=== PATIENT | male | born 1960 | race African-American/Black ===

== ENCOUNTER 2022-10-12 08:55 | Emergency (ER) | payer OTHER ==
[~2022-10-12] VITALS: Ht 170.2 cm; Wt 79.5 kg
[2022-10-12 10:48] LABS: Albumin 3.8 g/dL (3.4-5.0); Potassium 4.7 mmol/L (3.5-5.1)
[2022-10-12 10:53] LABS: BUN/Creatinine Ratio 15.9; Bilirubin, Total 0.5 mg/dL (0.2-1.0); Total Protein 7.9 g/dL (6.4-8.2)
[2022-10-12 11:48] LABS: Basophils # (auto) 0 10 ^3/uL (0-0.2); Eosinophils # (auto) 0 10 ^3/uL (0-0.8); Eosinophils % (auto) 0.4 % (0.0-7.0); Lymphocytes # (auto) 1.3 10 ^3/uL (0.4-5.4); Mean Corpuscular Volume 81.6 fL (80.0-100.0); Neutrophils # (auto) 2.8 10 ^3/uL (1.6-8.6)
[2022-10-12 11:51] LABS: Basophils % (auto) 0.6 % (0.0-2.0); Hematocrit 40.6 % (41.0-53.0); Hemoglobin 12.8 g/dL (13.5-17.5); Lymphocytes % (auto) 26.9 % (10.0-50.0); Mean Corpuscular Hemoglobin 25.7 pg (28.0-32.0); Mean Corpuscular Hgb Conc. 31.4 g/dL (32.0-36.0); Monocytes # (auto) 0.6 10 ^3/uL (0-1.3); Monocytes % (auto) 12.5 % (0.0-12.0); Neutrophils % (auto) 59.6 % (37.0-80.0); Nucleated Red Blood Cells % 0.1 %; Red Blood Cells 4.98 10^6/uL (4.5-5.90); Red Cell Distribution Width 12.8 % (11.8-14.3); White Blood Cell 4.7 10^3/uL (4.4-10.8)
[2022-10-12] MEDS ORDERED: MECLIZINE HCL 25 MG TAB PO ONE (12:00)
[2022-10-12] MEDS ORDERED: SODIUM CHLORIDE 0.9% 1,000 ML IV ONE (12:00)
[2022-10-12 13:06] LABS: Urine Bacteria NONE SEEN /hpf (None Seen); Urine Blood Negative /uL (Negative); Urine Specific Gravity 1.022 (1.001-1.035); Urine WBC <1 /hpf (0 - 3)
[2022-10-12] MEDS ORDERED: AMOX500T86 PO (15:36)
[2022-10-12] MEDS ORDERED: OXYM0.0579 (15:36)
[2022-10-12] MEDS ORDERED: DEXT1SYP9 PO (15:36)
[2022-10-12 16:27] VITALS: BP 142/76
== END 2022-10-12 16:29 | disposition home or self-care (01) ==
LOC: ER 08:55 → EDBD 08:55 → ER 16:29
DX: J01.90 Acute sinusitis, unspecified (principal); R55 Syncope and collapse; H81.10 Benign paroxysmal vertigo, unspecified ear; I10 Essential (primary) hypertension; E78.5 Hyperlipidemia, unspecified; Z85.46 Personal history of malignant neoplasm of prostate; Z20.822 Contact with and (suspected) exposure to COVID-19
CPT/HCPCS: 36415; 70450; 71046; 80053; 81001; 83735; 87426; 99284; J8597

== ENCOUNTER 2023-03-20 06:57 | Emergency (ER) | payer OTHER, MEDICAID ==
[~2023-03-20] VITALS: Ht 175.3 cm; Wt 77.2 kg
[~2023-03-20 06:57] MED LIST: AMOX500T86 PO; DEXT1SYP9 PO; OXYM0.0579
[2023-03-20 07:05] VITALS: BP 0/0
== END 2023-03-20 07:22 ==
LOC: ER 06:57 → EDBD 07:01 → ER 07:22
DX: I46.9 Cardiac arrest, cause unspecified (principal); E78.5 Hyperlipidemia, unspecified; I10 Essential (primary) hypertension; Z79.899 Other long term (current) drug therapy
CPT/HCPCS: 92950